=== PATIENT | female | born 1990 | race Two or more races ===

== ENCOUNTER 2020-04-03 17:10 | Inpatient (IN) | payer OTHER ==
[~2020-04-03] VITALS: Ht 149.9 cm; Wt 78.0 kg
[2020-04-04] MEDS ORDERED: ATABEX OB TABL1 EACH PO (08:27)
== END 2020-04-06 12:14 | disposition home or self-care (01) | DRG 807 ==
LOC: LDR 17:10 → SURG-SUITE 04-04 17:21
PROVIDERS: ADMIT Obstetrics & Gynecology; ATTEND Obstetrics & Gynecology
PROC: 10E0XZZ Delivery of Products of Conception, External Approach (ICD-10-PCS; principal; 2020-04-03)
PROC: 3E033VJ Introduction of Other Hormone into Peripheral Vein, Percutaneous Approach (ICD-10-PCS; 2020-04-03)
PROC: 0W8NXZZ Division of Female Perineum, External Approach (ICD-10-PCS; 2020-04-03)
PROC: 4A1HXFZ Monitoring of Products of Conception, Cardiac Rhythm, External Approach (ICD-10-PCS; 2020-04-03)
DX: O99.824 Streptococcus B carrier state complicating childbirth (principal); Z37.0 Single live birth; Z3A.39 39 weeks gestation of pregnancy